=== PATIENT | female | born 1965 | race Caucasian/White ===

== ENCOUNTER 2022-03-22 20:20 | Observation (INO) | payer OTHER ==
--- OUTSIDE RECORDS SUMMARY | 2022-03-22 20:23 | XMS REPORT | Continuity of Care Document ---
:1965 Author Organization [facility] t Address [address] [place] [address] Care Team Providers Name Role Phone IHDE_G Attending Clinician Unavailable IHDE_G Admitting Clinician Unavailable Payers Payer Name Policy Type Policy Number Effective Date Expiration Date S ourarlette [employer] - [employer] [id number] () Problems This patient has no known problems. Allergies, Adverse Reactions, Alerts This patient has no known allergies or adverse reactions. Social History Smoking Status Start Date Stop Date Source Never Smoker [facility] Medications This patient has no known medications. Vital Signs Vital Name Observation Time Observation Value Comments Source Height 2018-08-02 00:00:00 66 [facility]_i] [facility] BMI (Body Mass 2018-08-02 00:00:00 37.9 kg/m2 [facility] Group BP Systolic 2018-08-02 00:00:00 122 mm[Hg] [facility] Body Weight 2018-08-02 00:00:00 235 [lb_av] [facility] BP Diastolic 2018-08-02 00:00:00 82 mm[Hg] [facility] Procedures This patient has no known procedures. Encounters Start End Encounter Admission Attending Care Care Encounter Source Date/Time Date/Time Type Type Clinicians Facility Department ID 2020-04-24 2020-04-24 Outpatient IHDE_G [facility] [id number] [place] 02:46:00 02:46:00 [id number] 2018-08-02 2018-08-02 [place] - [id number] [place] 00:00:00 00:00:00 Immanuel Mcnamara6 татьяна Salas MD: [facility] [address], General [address], [place] [address] , Ph. [phone] Results This patient has no known results.
[2022-03-22] MEDS ORDERED: MORPHINE 4 MG/ML SYR ONE (22:03)
[2022-03-22 22:22] LABS: Absolute Lymphocytes (CBC) 1.7 K/uL (0.7-4.9); Hematocrit 39.6 % (36.0-45.0); Lymphocytes % 19.7 % (15.3-44.8); MCV 87.4 fL (80-100); MPV 7.9 fL (7.6-11.3); RBC Red Blood Cell Count 4.53 M/uL (3.86-4.86)
[2022-03-22 22:29] LABS: Urine Blood 1+ (Negative); Urine Glucose Negative (Negative); Urine Protein Negative (Negative); Urine pH 5.5 (5.0-7.0)
[2022-03-22 22:39] LABS: Urine Mucus Slight /HPF (None Seen)
[2022-03-22 22:41] LABS: Albumin 3.6 g/dL (3.4-5.0); Bilirubin Total 0.4 mg/dL (0.2-1.0); Potassium 3.6 mmol/L (3.5-5.1)
--- NOTE | 2022-03-22 23:23 | RAD REPORT ---
EXAM DESCRIPTION: CTAbdomen Pelvis W Contrast - 03/22/2022 11:10 pm CLINICAL HISTORY: abdominal pain COMPARISON: No comparisons TECHNIQUE: CT of the abdomen and pelvis was performed with IV contrast. All CT scans are performed using dose optimization technique as appropriate and may include automated exposure control or mA/KV adjustment according to patient size. FINDINGS: Lower chest: No acute abnormality. Liver: No acute abnormality or suspicious lesions. Biliary: No biliary ductal dilatation. Stomach: No significant focal abnormality. Duodenum: No significant focal abnormality. Pancreas: No significant abnormality. Spleen: No significant abnormality. Adrenal: No suspicious lesions. Kidney/ureter: No hydronephrosis. No renal calculi. Retroperitoneum: No retroperitoneal adenopathy. Vascular: No aneurysm. Bowel: Acute non perforated appendicitis. The appendix in the right lower quadrant and is retrocecal. No bowel obstruction. Peritoneum: No ascites or free air. Bladder: Grossly unremarkable. Reproductive: No adnexal masses. Bones: No acute fracture. Moderate disc height loss L5-S1. Other: n/a IMPRESSION: Acute nonperforated appendicitis.
[2022-03-23] MEDS ORDERED: METRONIDAZOLE 500mg IVPB 500 MG/100 ML BAG IV ONE (00:02)
[2022-03-23] MEDS ORDERED: CEFTRIAXONE 1000 MG/VIAL ONE (00:02)
[2022-03-23] MEDS ORDERED: NA CHLORIDE 0.9% 50 ML IV ONE (00:02)
--- NOTE | 2022-03-23 00:12 | ER ---
Nurse's Notes [facility] Name: Tamara Tijerina Age: 57 yrs Sex: Female : 1965 Arrival Date: 03/22/2022 Time: 20:24 Bed 8 Private MD: Diagnosis: Acute appendicitis with localized peritonitis Presentation: 03/22 20:33 Chief complaint: Abdominal bloating, fullness, nausea, and indigestion x 3-4 days, RLQ hb pain today. Coronavirus screen: At this time, the client does not indicate any symptoms associated with coronavirus-19. Ebola Screen: No symptoms or risks identified at this time. Initial Sepsis Screen: Does the patient meet any 2 criteria? No. Patient's initial sepsis screen is negative. Does the patient have a suspected source of infection? No. Patient's initial sepsis screen is negative. Risk Assessment: Do you want to hurt yourself or someone else? Patient reports no desire to harm self or others. Onset of symptoms was March 18, 2022. 20:33 Method Of Arrival: Ambulatory hb 20:33 Acuity: TANJA 3 hb Historical: - Allergies: 20:34 No Known Allergies; hb - PSHx: 20:34 Uterus repair; hb - Immunization history:: Adult Immunizations up to date. - Social history:: Smoking status: Patient denies any tobacco usage or history of. Screenin:19 Abuse screen: Denies threats or abuse. Denies injuries from another. Nutritional tw5 screening: No deficits noted. Tuberculosis screening: No symptoms or risk factors identified. Fall Risk None identified. Assessment: 22:19 General: Appears uncomfortable, Behavior is calm, cooperative, appropriate for age. tw5 Pain: Complains of pain in right upper quadrant Pain currently is 7 out of 10 on a pain scale. Neuro: No deficits noted. Cardiovascular: No deficits noted. Respiratory: No deficits noted. GI: Bowel sounds present X 4 quads. Abd is soft X 4 quads Abdomen is tender to palpation in right lower quadrant Reports constipation, nausea. 23:00 Reassessment: Patient appears in no apparent distress at this time. Patient and/or jb4 family updated on plan of care and expected duration. Pain level reassessed. Patient is alert, oriented x 3, equal unlabored respirations, skin warm/dry/pink. 03/23 00:00 Reassessment: Patient appears in no apparent distress at this time. Patient and/or jb4 family updated on plan of care and expected duration. Pain level reassessed. Patient is alert, oriented x 3, equal unlabored respirations, skin warm/dry/pink. Patient states feeling better. 00:07 General: [phone] [place] . tw5 01:00 Reassessment: Patient appears in no apparent distress at this time. Patient and/or jb4 family updated on plan of care and expected duration. Pain level reassessed. Patient is alert, oriented x 3, equal unlabored respirations, skin warm/dry/pink. 02:00 Reassessment: Patient appears in no apparent distress at this time. Patient and/or jb4 family updated on plan of care and expected duration. Pain level reassessed. Patient is alert, oriented x 3, equal unlabored respirations, skin warm/dry/pink. Vital Signs: 03/22 20:33 BP 151 / 105; Pulse 94; Resp 20; Temp 98.9; Pulse Ox 100% on R/A; Weight 117.93 kg; hb Height 5 ft. 6 in. (167.64 cm); Pain 8/10; 22:19 BP 130 / 88; Pulse 77; Resp 18; Pulse Ox 100% on R/A; Pain 7/10; tw5 03/23 00:07 BP 136 / 76; Pulse 77; Resp 18 S; Pulse Ox 100% on R/A; Pain 4/10; tw5 01:00 BP 109 / 68; Pulse 72; Resp 16; Pulse Ox 98% on R/A; jb4 02:00 BP 107 / 68; Pulse 68; Resp 18; Pulse Ox 96% on R/A; jb4 03/22 20:33 Body Mass Index 41.96 (117.93 kg, 167.64 cm) hb ED Course: 03/22 20:24 Patient arrived in ED. ag3 20:34 Triage completed. hb 20:34 Arm band placed on. hb 20:38 Wilton Gillis DO is Attending Physician. ms3 22:18 Rhina Murcia is Primary Nurse. tw5 22:19 Awaiting lab results, Awaiting CT Scan. tw5 22:19 Patient has correct armband on for positive identification. Placed in gown. Bed in low tw5 position. Call light in reach. Side rails up X 1. Pulse ox on. NIBP on. Door closed. Noise minimized. Moved to private room. Warm blanket given. Verbal reassurance given. 22: CBC with Diff Sent. 22: CMP Sent. 22: Urine Microscopic Only Sent. : Lipase Sent. : Initial lab(s) drawn, by ED staff, sent to lab. Urine collected: clean catch specimen. tw5 Inserted saline lock: 18 gauge in right antecubital area, using aseptic technique. Blood collected. started by odilon dawkins. 23:11 CT Abd/Pelvis - IV Contrast Only In Process Unspecified. EDMS 03/23 00:11 Pelon Birch MD is Hospitalizing Provider. ms3 02:54 Assist provider with bone marrow aspiration. Patient admitted, IV remains in place. Administered Medications: 03/22 22:19 Drug: morphine 4 mg Route: IVP; Infused Over: 4 mins; Site: right antecubital; tw5 03/23 00:09 Follow up: Response: No adverse reaction; Pain is decreased; RASS: Alert and Calm (0) tw 00:09 Drug: Rocephin (cefTRIAXone) 1 grams Route: IV; Rate: calculated rate; Site: right tw5 antecubital; 00:14 Drug: Flagyl (metroNIDAZOLE) 500 mg Volume: 100 ml; Route: IVPB; Rate: 200 ml/hr; tw5 Infused Over: 30 mins; Site: right antecubital; Medication: 03/22 22:19 VIS not applicable for this client. Outcome: 03/23 00:11 Decision to Hospitalize by Provider. ms3 02:54 Admitted to Med/surg Report called to called report to medsur nurse tw 02:54 Condition: improved 02:54 Instructed on the need for admit. 03:17 Patient left the ED. jb4 Signatures: Dispatcher [employer] EDDC Jody Wei, RN RN Davian Hernandez RN RN jb4 Venessa Delgado 3 Wilton Gillis DO DO ms3 Torey Murciafany tw5
--- NOTE | 2022-03-23 00:12 | EDPHYS ---
Physician Documentation [facility] Name: Tamara Tijerina Age: 57 yrs Sex: Female : 1965 Arrival Date: 03/22/2022 Time: 20:24 Bed 8 Private MD: ED Physician Wilton Gillis HPI: 03/22 22:56 This 57 yrs old Female presents to ER via Ambulatory with complaints of Abdominal Pain, ms3 Abdominal Bloating, Heartburn. 22:56 57-year-old female with past medical history of hyperlipidemia presents for 4 days of ms3 bloating abdominal pain. Patient states her pain is a 5/10 and described as being sharp located in her right lower quadrant. Patient states eating makes the pain worse. Patient denies alleviating factors. Patient denies fevers, chills, nausea, vomiting, diarrhea, shortness of breath.. Historical: - Allergies: 20:34 No Known Allergies; hb - PSHx: 20:34 Uterus repair; hb - Immunization history:: Adult Immunizations up to date. - Social history:: Smoking status: Patient denies any tobacco usage or history of. ROS: 22:56 Constitutional: Negative for fever, and chills. Neck: Negative for injury, pain, and ms3 swelling, Cardiovascular: Negative for chest pain, and palpitations. Respiratory: Negative for shortness of breath, cough, wheezing, and pleuritic chest pain. 22:56 Abdomen/GI: Positive for abdominal pain. 22:56 All other systems are negative. Exam: 22:56 Constitutional: This is a well developed, well nourished patient who is awake, alert, ms3 and in no acute distress. Head/Face: Normocephalic, atraumatic. Neck: Trachea midline, no cervical lymphadenopathy. Supple, full range of motion without nuchal rigidity, or vertebral point tenderness. No Meningismus. Chest/axilla: Normal chest wall appearance and motion. Nontender with no deformity. Cardiovascular: Regular rate and rhythm with a normal S1 and S2. No gallops, murmurs, or rubs. Normal PMI, no JVD. No pulse deficits. Respiratory: Lungs have equal breath sounds bilaterally, clear to auscultation and percussion. No rales, rhonchi or wheezes noted. No increased work of breathing, no retractions or nasal flaring. 22:56 Skin: Warm, dry with normal turgor. Normal color with no rashes, no lesions, and no evidence of cellulitis. MS/ Extremity: Pulses equal, no cyanosis. Neurovascular intact. Full, normal range of motion. Psych: Awake, alert, with orientation to person, place and time. Behavior, mood, and affect are within normal limits. 22:56 Abdomen/GI: Inspection: abdomen appears normal, Bowel sounds: normal, Palpation: moderate abdominal tenderness, in the right lower quadrant. 22:56 Back: pain. Vital Signs: 20:33 BP 151 / 105; Pulse 94; Resp 20; Temp 98.9; Pulse Ox 100% on R/A; Weight 117.93 kg; hb Height 5 ft. 6 in. (167.64 cm); Pain 8/10; 22:19 BP 130 / 88; Pulse 77; Resp 18; Pulse Ox 100% on R/A; Pain 7/10; tw5 03/23 00:07 BP 136 / 76; Pulse 77; Resp 18 S; Pulse Ox 100% on R/A; Pain 4/10; tw5 01:00 BP 109 / 68; Pulse 72; Resp 16; Pulse Ox 98% on R/A; jb4 02:00 BP 107 / 68; Pulse 68; Resp 18; Pulse Ox 96% on R/A; jb4 03/22 20:33 Body Mass Index 41.96 (117.93 kg, 167.64 cm) hb MDM: 03/22 20:55 Patient medically screened. ms3 22:56 Differential diagnosis: appendicitis, bowel obstruction, non-specific abd pain. ms3 03/23 00:16 Data reviewed: vital signs, nurses notes, lab test result(s), radiologic studies, and ms3 as a result, I will admit patient. Counseling: I had a detailed discussion with the patient and/or guardian regarding: the historical points, exam findings, and any diagnostic results supporting the discharge/admit diagnosis, lab results, radiology results, the need for further work-up and treatment in the hospital. 03/22 21:45 Order name: CBC with Diff; Complete Time: 23:52 ms3 03/22 21:45 Order name: CMP; Complete Time: 23:52 ms3 03/22 21:45 Order name: Lipase; Complete Time: 23:52 ms3 03/22 21:45 Order name: Urine Microscopic Only; Complete Time: 23:52 ms3 03/22 22:30 Order name: Urine Dipstick-Ancillary; Complete Time: 23:52 EDMS 03/22 22:43 Order name: Urine Culture EDMS 03/22 21:45 Order name: CT Abd/Pelvis - IV Contrast Only; Complete Time: 23:52 ms3 03/23 00:41 Order name: Basic Metabolic Panel EDMS 03/23 00:41 Order name: Basic Metabolic Panel EDMS 03/23 00:41 Order name: CBC with Automated Diff EDMS 03/23 00:41 Order name: CBC with Automated Diff EDMS 03/23 01:14 Order name: SARS-COV-2 Antigen Rapid 03/23 01:41 Order name: SARS-COV-2 Antigen Rapid; Complete Time: 02:03 EDMS 03/22 21:45 Order name: IV Saline Lock; Complete Time: 22:19 ms3 03/22 21:45 Order name: Labs collected and sent; Complete Time: 22:19 ms3 03/22 21:45 Order name: Urine Dipstick-Ancillary (obtain specimen); Complete Time: 22:19 ms3 03/23 00:41 Order name: CONS Physician Consult EDMS 03/23 00:41 Order name: NPO EDMS Administered Medications: 03/22 22:19 Drug: morphine 4 mg Route: IVP; Infused Over: 4 mins; Site: right antecubital; tw5 03/23 00:09 Follow up: Response: No adverse reaction; Pain is decreased; RASS: Alert and Calm (0) tw5 00:09 Drug: Rocephin (cefTRIAXone) 1 grams Route: IV; Rate: calculated rate; Site: right tw5 antecubital; 00:14 Drug: Flagyl (metroNIDAZOLE) 500 mg Volume: 100 ml; Route: IVPB; Rate: 200 ml/hr; tw5 Infused Over: 30 mins; Site: right antecubital; Disposition Summary: 03/23/22 00:11 Hospitalization Ordered Hospitalization Status: Observation ms3 Provider: Pelon Birch ms3 Location: Telemetry/MedSurg (observation) ms3 Condition: Stable ms3 Problem: new ms3 Symptoms: are unchanged ms3 Bed/Room Type: Standard ms3 Room Assignment: 411(03/23/22 01:42) cg Diagnosis - Acute appendicitis with localized peritonitis ms3 Forms: - Medication Reconciliation Form ms3 - SBAR form ms3 Signatures: Dispatcher [employer] Angela Pena RN RN cg Jody Wei RN RN Wilton Gillis, DO GARZON ms3 Torey Murciafany tw5 Corrections: (The following items were deleted from the chart) 01:42 00:11 ms3 cg
[2022-03-23] MEDS ORDERED: ACETAMINOPHEN 500 MG TAB PO PRN (00:38)
[2022-03-23] MEDS ORDERED: MORPHINE 2 MG/ML SYR IV PRN (00:39)
--- NOTE | 2022-03-23 00:40 | P.HP ---
Certification for Inpatient Patient admitted to: Observation With expected LOS: <2 Midnights Patient will require the following post-hospital care: None Practitioner: I am a practitioner with admitting privileges, knowledge of patient current condition, hospital course, and medical plan of care. Services: Services provided to patient in accordance with Admission requirements found in Title 42 Section 412.3 of the Code of Federal Regulations Patient History Date of Service: 03/23/22 Reason for admission: Acute Appendicitis History of Present Illness: Ms. Tamara Tijerina is a pleasant 57 year old female who has a past medical history of hyperlipidemia who presents to the [facility] Emergency Department for abdominal pain. She reports that, over the last 3-4 days, she has been experiencing progressively worsening abdominal pain. She states that, initially, the pain was generalized and associated with abdominal distention; however, over the last day, the pain has been localized to her right lower quadrant. She describes the pain as pressure and she grades it a 4/10 in severity. She states that pain is worse with ambulation. She denies any alleviating factors. She has not tried taking any medications for her symptoms. On review of systems, she denies any fevers, chills, headaches, dizziness, syncope, weakness, chest pain, palpitations, shortness of breath, wheezing, cough, nausea/vomiting, diarrhea, constipation, hematochezia, melena, dysuria, hematuria, myalgia, or any other symptoms. She presented to the Emergency Department for further evaluation. Upon presentation, her vital signs were stable. Her laboratory studies were fairly unremarkable. Her urinalysis revealed 1+ blood, 1+ leukocyte esterase, 5- 10 RBCs, 20-[address] abdomen/pelvis revealed, "acute nonperforated appendicitis." General Surgery was consulted in the Emergency Department, and recommendations are pending. In the Emergency Department, she was given ceftriaxone and morphine. She was admitted to the General Internal Medicine service for further evaluation. Allergies No Known Allergies Allergy (Verified 03/23/22 01:16) Home medications list reviewed: Yes Home Medications: Atorvastatin Calcium [Lipitor] 10 mg PO BEDTIME 03/23/22 Ergocalciferol (Vitamin D2) [Vitamin D 50,000 Unit Cap] 50,000 unit PO Q7D 03/23/22 - Past Medical/Surgical History Diabetic: No -: Hyperlipidemia -: Vitamin D Deficiency Past Surgical History: Patient denies surgical history - Family History Mother -: Heart disease (maternal grandmother - [place] at age 35 years) - Social History Smoking Status: Never smoker Alcohol use: No CD- Drugs: No Review of Systems General: Unremarkable Eyes: Unremarkable ENT: Unremarkable Respiratory: Unremarkable Cardiovascular: Unremarkable Gastrointestinal: Abdominal Pain Genitourinary: Unremarkable Musculoskeletal: Unremarkable Integumentary: Unremarkable Neurological: Unremarkable Lymphatics: Unremarkable Physical Examination - Vital Signs Temperature: 98.9 F Blood Pressure: 136/76 Pulse: 77 Respirations: 18 Pulse Ox (%): 100 - Physical Exam General: Alert, In no apparent distress, Oriented x3 HEENT: Atraumatic, PERRLA, Mucous membr. moist/pink, EOMI, Sclerae nonicteric Neck: Supple Respiratory: Clear to auscultation bilaterally, Normal air movement Cardiovascular: No edema, Regular rate/rhythm, Normal S1 S2, No gallops, No rubs, No murmurs Gastrointestinal: Normal bowel sounds, Non-distended, No rebound, No guarding, Tenderness (RLQ) Musculoskeletal: No clubbing, No swelling Integumentary: No rashes Neurological: Normal speech, Cranial nerves 3-12 intact, Normal affect - Studies Laboratory Data (last 24 hrs) 03/22/22 22:07: Sodium 139, Potassium 3.6, BUN 12, Creatinine 0.82, Glucose 95, Total Bilirubin 0.4, AST 13 L, ALT 20, Alkaline Phosphatase 93, Lipase 125 03/22/22 22:07: WBC 8.80, Hgb 13.1, Hct 39.6, Plt Count 304 Assessment and Plan - Plan # Acute Uncomplicated Appendicitis - CT abdomen/pelvis = "acute nonperforated appendicitis" - Admit to Medicine - General Surgery consulted and Dr. Gillis spoke to Dr. Carlson - recommendations appreciated - Piperacillin-Tazobactam 3.375 g IV q6hr - Lactated Ringers' at 100 mL/hr - PRN ondansetron, acetaminophen, morphine - NPO - Pre-operative labs ordered: - PT/INR - Type & screen # Hyperlipidemia # Vitamin D Deficiency - Hold home medications while NPO # Microscopic Hematuria - Follow-up with PCP for further evaluation Pelon Birch M.D. Discharge Plan: Home Plan to discharge in: 24 Hours - Advance Directives Does patient have a Living Will: No Does patient have a Durable POA for Healthcare: No - Code Status/Comfort Care Code Status Assessed: Yes Code Status: Full Code
[2022-03-23 01:40] LABS: SARS-CoV-2 Antigen Rapid Res Negative (Negative)
[2022-03-23] MEDS: Ringers Lactate 1,000 ML IV SCH ×3 (03:29→22:22)
[2022-03-23] MEDS: ONDANSETRON 4 MG/2 ML VIAL IV PRN ×2 (03:29→22:24)
[2022-03-23 03:49] VITALS: BMI 41.9
[2022-03-23] MEDS: PIPER TAZO 3.375 GM in NA CHLORIDE 0.9% 100 ML IV SCH ×3 (06:10→22:21)
[2022-03-23 06:27] LABS: Protime INR 1.2
[2022-03-23] MEDS ORDERED: INFLUENZA VACCINE (for 6+ mo) 0.5 ML DOSE IMVAC ONE (08:00)
[2022-03-23] MEDS: BUPIVACAINE 0.5% PF 10 ML VIAL ONE ×2 (08:50→09:54)
[2022-03-23] MEDS ORDERED: FENTANYL CITR 100 MCG/2 ML ONE (09:22)
[2022-03-23] MEDS ORDERED: propofoL 200 MG/20 ML VIAL IV ONE (09:22)
[2022-03-23] MEDS ORDERED: MIDAZOLAM HCL 2 MG/2 ML INJ ONE (09:22)
[2022-03-23] MEDS ORDERED: ONDANSETRON 4 MG/2 ML VIAL ONE (09:23)
[2022-03-23] MEDS ORDERED: LIDOCAINE 2% MPF 5 ML VIAL ONE (09:23)
[2022-03-23] MEDS ORDERED: ROCURONIUM 50 MG/5 ML VIAL IV ONE (09:23)
[2022-03-23] MEDS ORDERED: dexAMETHasone 4 MG/ML VIAL ONE (09:32)
--- NOTE | 2022-03-23 10:07 | CON ---
Date of Consultation: 03/23/2022 Diagnosis: Acute appendicitis. History Of Present Illness: This is the case of a 57-year-old person with history of hyperlipidemia, came to the hospital with abdominal pain right lower quadrant associated with nausea. Began in the periumbilical region, moved to the right lower quadrant, and it took about 4 days to do that. She de cided to come early this morning to the ER since it was not getting better, diagnosed with acute appe ndicitis. She denies any dysuria, hematuria, hematochezia, melena. Denies any recent traveling out of the country. Denies any family member sick at home. Denies any shortness of breath, any diarrhea . Review of Systems: Ten points otherwise unremarkable. Allergies: NONE. Past Surgical History: She has uterus surgery laparoscopically. Social History: She does not smoke. She does not drink alcohol. She does not record previous colonoscopies. She thought it was 4 to 5 years ago. She is going to be looking at that when she goes home. Physical Examination: General: The patient is awake, alert. HEENT: Pupils are equal and reactive. Anicteric. Neck: Supple. Chest: Clear. Heart: S1, S2. Abdomen: Right lower quadrant tenderness with guarding. No rebound. Pelvic: Deferred. Rectal: Deferred. Extremities: Good capillary refill. Laboratory Data: Blood work shows a WBC count of 8.8 with hemoglobin of 13.1. INR is 1.2. Potassiu m 3.6, creatinine 0.82. CAT scan of the abdomen and pelvis interpreted by Dr. Ricardo as acute appendici tis with retrocecal appendix. Assessment: This is the case of a 57-year-old patient with acute appendicitis. Benefits, alternativ es, and risks of laparoscopic possible open appendectomy fully explained, which include, but not limi abbi to infection, bleeding, damage to adjacent structures, anesthesia complication, negative appendix , [place], and even . She also understands this may not relieve any symptoms. She might need more t willis one surgical intervention. She understood and signed a consent. She also understands the import ance of finding about the colonoscopy at this age. We also would like to find any logical explanatio n for the appendicitis that could be just coincidental, but also we have to look in the cecum to make sure there is no any pathology in that area causing this or the appendix itself. She was explained. She is going to trying to find out her previous colonoscopy and followup in my office. LILLIANA/CINTHIA Voice ID: [id number] Report ID: [id number]
--- NOTE | 2022-03-23 10:24 | P.BOP ---
Preoperative diagnosis: Acute appendicitis Postoperative diagnosis: same Primary procedure: Laparoscopic appendectomy Lagging Machine Operator: Twila Haque (Carito) Estimated blood loss: <10cc Specimen: sonia Findings: as above Anesthesia: General Complications: None Transferred to: Recovery Room Condition: Good
[2022-03-23] MEDS ORDERED: HYDROCODONE/APAP 5/325 MG TAB PO PRN (10:27)
[2022-03-23] MEDS: HYDROMORPHONE HCL 1 MG/ML INJ ONE ×4 (10:40→11:05)
--- NOTE | 2022-03-23 12:04 | OP ---
Date of Procedure: 03/23/2022 Surgeon: Karsten Carlson MD Call Center Operations Manager: JOSE Camacho. Preoperative Diagnosis: Acute appendicitis. Postoperative Diagnosis: Acute appendicitis. Procedure: Laparoscopic appendectomy. Estimated Blood Loss: Less than 10 cc. Specimens: Appendix. Anesthesia: General plus local. Indication: This is the case of a 57-year-old patient, who comes to us with above diagnoses. Fully explained the benefits, alternatives, and risks of laparoscopic possible open appendectomy, which inc lude, but not limited to infection, bleeding, damage to adjacent structures, anesthesia complication, negative appendix, [place], and even . She also understands this may not relieve any symptoms. She might need more than one surgical intervention. She understood, signed a consent. Procedure In Detail: The patient was brought to the operating room, placed in supine position. Anes thesia was done without complication. Abdominal area was prepped and draped in the usual sterile fas hion. Marcaine 0.5% was injected for local anesthetic followed by sharp incision of the skin in the infraumbilical region. The incision was carried down to fascia, which was opened under direct vision . Peritoneum was encountered, opened under direct vision. Vicryl #1 placed inside the fascia. Chaka on trocar was carefully introduced. Pneumoperitoneum was obtained. I placed 2 more trocars, 5 mm ea ch one of them in the suprapubic left lower quadrant under direct visualization. This allowed me to visualize the area of the appendix, looks like it is retrocecal. We were able to mobilize the append ix by opening slightly the white line of Toldt. No bleeding. The base of appendix was identified an d seemed to be free of disease, so we created a window in the base of the appendix, transected that w ith an Endo-THALIA 45 mm nonvascular clips and then the mesoappendix with sequential Endo-THALIA 45 mm vasc ular clips making sure the terminal ileum and the cecum and the ureters were protected at all times. Appendix removed from abdominal cavity using EndoCatch through the umbilical incision. The area was inspected once again after irrigation. No bowel leak. No bleeding. At that moment, I proceeded to remove the trocars under direct vision. Deflated pneumoperitoneum. Closed the fascia with #1 Vicry l. Irrigated subcutaneous tissue, closed that with 3-0 chromic and the skin with elena. Sponge co unt, instrument counts correct. The patient tolerated the procedure well. The patient was sent to r ecovery in stable condition. LILLIANA/CINTHIA Voice ID: [id number] Report ID: [id number]
[2022-03-23 23:19] VITALS: O2SAT 97
[2022-03-24 03:43] LABS: Absolute Lymphocytes (CBC) 0.7 K/uL (0.7-4.9); Hematocrit 34.2 % (36.0-45.0); Lymphocytes % 8.2 % (15.3-44.8); MCV 87.2 fL (80-100); MPV 7.9 fL (7.6-11.3); RBC Red Blood Cell Count 3.92 M/uL (3.86-4.86)
[2022-03-24] MEDS: PIPER TAZO 3.375 GM in NA CHLORIDE 0.9% 100 ML IV SCH (05:42)
[2022-03-24] MEDS: Ringers Lactate 1,000 ML IV SCH (09:36)
[2022-03-24 12:28] VITALS: BP 134/80; TEMP 97.3
--- NOTE | 2022-03-24 14:05 | RAD REPORT ---
EXAM DESCRIPTION: CT - Chest For Pe Angio - 03/24/2022 1:41 pm CLINICAL HISTORY: Chest pain COMPARISON: None. TECHNIQUE: Dynamically enhanced axial 3 mm thick images of the chest were obtained during administra tion of <100> mL Isovue 370 IV contrast. Coronal and oblique reconstruction images were generated and reviewed. Exam utilizes a protocol for optimal evaluation of pulmonary arterial tree. Maximum intensity projections 3D imaging was utilized All CT scans are performed using dose optimization technique as appropriate and may include automated exposure control or mA/KV adjustment according to patient size. FINDINGS: A pulmonary embolus is not seen. A thoracic aortic aneurysm is not noted. A pleural effusion is not seen. A pericardial effusion is not seen. A lung consolidation is not present. A few areas of subsegmental atelectasis left base IMPRESSION: Negative for a pulmonary embolism.
--- NOTE | 2022-03-24 15:25 | PN ---
Subjective: Status post appendectomy, doing well. No complaint. No nausea, no vomiting. Physical Examination: Chest: Clear. Abdomen: Soft and depressible. Intact surgical site. Plan: Patient will be discharged home on p.o. antibiotics. Follow up in my office in 1 week. No he lars lifting. Keep the area dry for 24 hours, then may remove her dressings and shower. CHRIS Voice ID: [id number] Report ID: [id number]
== END 2022-03-24 16:47 | disposition home or self-care (01) ==
LOC: ER 20:20 → ERHOLD 03-23 00:51 → 4TH 03-23 02:15
PROVIDERS: ADMIT Internal Medicine; ATTEND Hospitalist
PROC: 0DTJ4ZZ Resection of Appendix, Percutaneous Endoscopic Approach (ICD-10-PCS; principal; 2022-03-23 10:30)
DX: K35.80 Unspecified acute appendicitis (principal); Z20.822 Contact with and (suspected) exposure to COVID-19
CPT/HCPCS: 36415; 71275; 74177; 80048; 80053; 81003; 81015; 83690; 84484; 85025; 85379; 85610; 86850; 86900; 86901; 87086; 87088; 87811; 88304; 93005; 94010; 96374; 96375; 99285; G0378; J1100; J1170; J2001; J2250; J2270; J2405; J2543; J2704; J3010; J7120; Q9967

== ENCOUNTER 2022-10-12 08:42 | Day surgery (SDC) | payer OTHER ==
[2022-10-12 09:30] LABS: MPV 8.6 fL (7.6-11.3)
[2022-10-12] MEDS ORDERED: NA CHLORIDE 0.9% 1,000 ML ONE (09:37)
[2022-10-12] MEDS ORDERED: MIDAZOLAM HCL 2 MG/2 ML INJ ONE (09:55)
[2022-10-12] MEDS ORDERED: NALOXONE 0.4 MG/ML VIAL ONE (09:56)
[2022-10-12] MEDS ORDERED: FLUMAZENIL 0.1 MG/ML (5 mL VIAL) IV ONE (09:56)
[2022-10-12] MEDS ORDERED: FENTANYL CITR 100 MCG/2 ML ONE (09:56)
--- NOTE | 2022-10-12 11:22 | RAD REPORT ---
EXAM DESCRIPTION: CT - Liver Biopsy Perc CT - 10/12/2022 11:05 am CLINICAL HISTORY: FATTY LIVER COMPARISON: Abdomen Pelvis W/Wo Contrast dated 05/08/2022 FINDINGS: Preoperative diagnosis: Elevated liver function tests, fatty liver Post operative diagnosis: Same Conscious Sedation: 45 minutes IV conscious sedation.. Patient was continuously monitored by nursing staff. Contrast used: NONE Estimated blood loss: less than 5 mL Specimens: 2 X 18 gauge core specimens The patient was placed supine on the table and the right upper quadrant area was prepped and draped i n the usual sterile fashion. 1% lidocaine was infiltrated into the subcutaneous tissues for local ane sthesia. Under computed tomographic guidance, a 17 gauge introducer was advanced into the right lobe liver. Subsequently, a 18 gauge, 10 cm long, 20 mm throw core biopsy gun was advanced into the liver and 2 cores were obtained. Postprocedure imaging demonstrated no complications. Samples were given to pathology for analysis. Th e patient tolerated the procedure without immediate complication and transferred to the recovery room in stable condition. IMPRESSION: Technically successful nonfocal CT-guided liver biopsy. All CT scans are performed using dose optimization technique as appropriate and may include automated exposure control or mA/KV adjustment according to patient size.
[2022-10-12 12:06] VITALS: TEMP 97.9; O2SAT 100; BMI 38.4
[2022-10-12 14:00] VITALS: BP 103/63
== END 2022-10-12 13:12 | disposition home or self-care (01) ==
LOC: DS 08:42
PROVIDERS: ATTEND Surgery
DX: K76.0 Fatty (change of) liver, not elsewhere classified (principal); R94.5 Abnormal results of liver function studies; K83.1 Obstruction of bile duct
CPT/HCPCS: 36415; 47000; 85049; 85730; 88305; 88307; 88313; J2250; J2310; J3010; J7030